=== PATIENT | male | born 1990 | race Two or more races ===

== ENCOUNTER 2024-11-24 04:46 | Emergency (ER) | payer OTHER, MEDICAID ==
[~2024-11-24] VITALS: Ht 180.3 cm; Wt 88.2 kg
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
[2024-11-24 05:46] VITALS: BP 137/91; PULSE 73; RESP 16; TEMP 98.9; O2SAT 98
== END 2024-11-24 05:48 | disposition home or self-care (01) ==
LOC: ER 04:46
DX: Z00.00 Encounter for general adult medical examination without abnormal findings (principal); V49.9XXA Car occupant (driver) (passenger) injured in unspecified traffic accident, initial encounter; Y93.89 Activity, other specified; Y92.89 Other specified places as the place of occurrence of the external cause; Y99.8 Other external cause status